=== PATIENT | female | born 1950 | race Hispanic/Latino ===

== ENCOUNTER → 2017-11-19 | Outpatient (CLI) | payer MEDICARE, BC ==
[~2017-11-19] MED LIST: ASPIR 8181 MG PO; CEFTIN500 MG PO; CRESTOR10 MG PO; DITROPAN XL5 MG PO; LISINOPRIL10 MG PO; NEXIUM40 MG PO; NORCO 10MG-325MG1 EA PO; PROBIOTIC & AC1 EACH PO; TYLENOL WITH C1 EACH PO; URIBEL CAPSULE1 EACH PO; Z.0.ESTRADIOL0.5 MG PO; Z.0.HYDROCHLOROTHIA2 PO; Z.0.LIPITOR10 MG PO
== END ==
LOC: CARD 08:33
PROVIDERS: ATTEND Family Medicine
DX: R42 Dizziness and giddiness (principal)
CPT/HCPCS: 93880

== ENCOUNTER 2018-02-16 02:28 | Emergency (ER) | payer MEDICARE, BC ==
[~2018-02-16] VITALS: Ht 154.9 cm; Wt 76.2 kg
[~2018-02-16 02:28] MED LIST changes: -ASPIR 8181 MG PO; -CRESTOR10 MG PO; -LISINOPRIL10 MG PO; -NEXIUM40 MG PO; -PROBIOTIC & AC1 EACH PO
--- OUTSIDE RECORDS SUMMARY | 2018-02-16 02:31 | XMS REPORT | Summary of Care ---
Author Author ION ROLLE M.D. Organization Unknown Address [facility] Phone Unavailable Care Team Providers Care Dye Reel Operator Name Role Phone ION ROLLE M.D. Unavailable Unavailable Unavailable Unavailable Functional Status Name Dates Details Functional status health issues are not documented Status: Name Dates Details Cognitive status health issues are not documented Status: Problems Name Dates Details Irritant contact dermatitis (692.9, L24.9) Status: Active Chronic GERD (530.81, K21.9) Status: Active TMJ (temporomandibular joint disorder) (524.60, M26.609) Status: Active Medications Name Dates Details HydroCHLOROthiazide 25 MG Oral Tablet Active Estradiol 0.5 MG Oral Tablet * Refills: 0 Active Lipitor TABS * Refills: 0 Active Allergies and Adverse Reactions Name Dates Details No Known Drug Allergies (Allergy) Status: Active Past Medical History Name Dates Details History of Absence of both cervix and uterus, acquired (V88.01, Z90.710) Status: Resolved 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 Has some GERD. Will need to begin Nexium daily and dietary modifications. 2. For the TMJ need to get ecommerce project manager. Fu as needed. Instructions Name Dates Details Instructions not documented Encounters Appointment; ANANYA NICOLE M.D. Encounter Diagnosis: Problem not documented On: 10-Mar-2016 13:00 Appointment; ION ROLLE M.D. Encounter Diagnosis: Problem not documented On: 28-Jan-2018 9:45
--- OUTSIDE RECORDS SUMMARY | 2018-02-16 02:31 | XMS REPORT ---
Author [facility] Address Unknown Phone Unavailable Care Team Providers Care Human Relations Manager Name Role Phone ANALI JOVEL Unavailable Unavailable Problems This patient has no known problems. Allergies, Adverse Reactions, Alerts This patient has no known allergies or adverse reactions. Medications This patient has no known medications. Results Test Description Test Time Test Comments Text Results Atomic Results Result Comments ABDOMEN-1VIEW (KUB) [place] [address] Patient Name: LANE CARRILLO MR #: [id number] : 1950 Age/Sex: 67/F Req #: [id number] Adm Physician: Ordered by: ANALI JOVEL MD Report #: [id number] Location: US Room/Bed: Procedure: [id number] DX/ABDOMEN-1VIEW (KUB) Exam Date: 09/03/17 Exam Time: 1515 REPORT STATUS: Signed PROCEDURE: ABDOMEN -1VIEW (KUB) TECHNIQUE: Supine AP abdomen totaling 2 radiographs INDICATION: Renal stones COMPARISON: [facility], CT, CT ABDOMEN/PELVIS WO, 05/01/2017, 8:45. FINDINGS: See conclusion. CONCLUSION: 1. Numerous punctate stones bilaterally. The largest on the left measures 0.4 cm and on the right 0.3 cm. These are much better seen on the CT from April 2017, where there were greater than 10 stones on the right and greater than 10 stones on the left. 2. No calcifications overlying the ureters or urinary bladder. 3. Normal bowel gas pattern. No ascites. 4. Intact skeleton. Dictated by: Khris Negron M.D. on 2016 at 15:34 Electronically approved by: Khris Negron M.D. on at 15:34 Dictated By: KHRIS NEGRON MD 1534 Transcribed By: LATRELL on 09/03/17 1534 COPY TO: ANALI JOVEL MD US RENAL RETROPERITONEAL COMP [place] [address] Patient Name: LANE CARRILLO MR #: [id number] : 1950 Age/Sex: 67/F Req #: [id number] Adm Physician: Ordered by: ANALI JOVEL MD Report #: [id number] Location: Room/Bed: Procedure: [id number] US/US RENAL RETROPERITONEAL COMP Exam Date: Exam Time: REPORT STATUS: Signed PROCEDURE: US RETROPERITONEAL ( KIDNEY ). COMPARISON: [facility], CT, CT ABDOMEN/PELVIS WO, 05/01/2017, 8:45. INDICATIONS: Cyst Of Kidney TECHNIQUE: Henriquez scale and color Doppler ultrasound kidneys FINDINGS: Right: 12 x 5.5 x 5.7 cm. Cortical thickness 1.6 cm. Left: 12.1 x 6.2 x 6 cm. Cortical thickness 2.1 cm. Both kidneys demonstrate normal parenchymal echogenicity. Numerous punctate stone seen on CT from April 2017 are not conspicuous, likely secondary to their size. Simple cysts : Left mid kidney 4.4 x 3.6 x 3.7 cm anechoic, avascular, noncalcified. CONCLUSION: Simple 4.4 cm left renal cyst. Punctate nonobstructive bilateral nephrolithiasis is better seen on CT from April 2017. Dictated by: Khris Negron M.D. on 09/03/2017 at 15:25 Electronically approved by: Khris Negron M.D. on 09/03/2017 at 15:25 Dictated By: KHRIS NEGRON MD 1525 Transcribed By: LATRELL on 09/03/17 1525 COPY TO: ANALI JOVEL MD
[2018-02-16] MEDS ORDERED: KETOROLAC TROMETHAMINE 30 MG/ML VIAL IV STA (02:44)
[2018-02-16 02:49] LABS: BASOPHILS % 0.2 % (0.0-1.0); EOSINOPHILS # (AUTO) 0.1 (0.0-0.4); EOSINOPHILS % 0.6 % (0.0-6.0); HEMATOCRIT 44.4 % (34.2-44.1); HEMOGLOBIN 14.6 g/dL (12.0-16.0); LYMPHOCYTES # (AUTO) 2.5 (1.0-3.2); LYMPHOCYTES % 16.9 % (18.0-39.1); MEAN CORPUSCULAR HGB CONC 32.9 g/dL (31-35); MEAN CORPUSCULAR VOLUME 88.1 fL (81-99); MONOCYTES # (AUTO) 0.7 (0.2-0.8); NEUTROPHILS # (AUTO) 11.2 (2.1-6.9); PLATELET COUNT 184 x10e3/uL (140-360); RED BLOOD COUNT 5.04 x10e6/uL (3.6-5.1); RED CELL DISTRIBUTION WIDTH 13.3 % (11.7-14.4)
[2018-02-16] MEDS ORDERED: SODIUM CHLORIDE 0.9% 1000ML 1,000 ML IV ONE (03:00)
[2018-02-16 03:07] LABS: ALANINE AMINOTRANSFERASE 56 IU/L (0-55); ALBUMIN 4.2 g/dL (3.5-5.0); ALBUMIN/GLOBULIN RATIO 1.1 (0.8-2.0); ALKALINE PHOSPHATASE 69 IU/L (40-150); ANION GAP 13.3 mmol/L (8-16); BLOOD UREA NITROGEN 19 mg/dL (7-26); BUN/CREATININE RATIO 25 (6-25); CARBON DIOXIDE 27 mmol/L (22-29); CHLORIDE 96 mmol/L (98-107); CREATININE, SERUM 0.76 mg/dL (0.57-1.11); EST GLOMERULAR FILTRATION RATE > 60 ML/MIN (60-); GLUCOSE 155 mg/dL (74-118); POTASSIUM 3.3 mmol/L (3.5-5.1); SODIUM 133 mmol/L (136-145)
[2018-02-16 05:01] LABS: CLARITY,URINE CLEAR (CLEAR); COLOR,URINE YELLOW (YELLOW); KETONES,URINE NEGATIVE (NEGATIVE); LEUKOCYTE ESTERASE ,URINE NEGATIVE (NEGATIVE); NITRITE,URINE NEGATIVE (NEGATIVE); PROTEIN,URINE DIPSTICK TRACE (NEGATIVE)
[2018-02-16 05:02] LABS: BILIRUBIN,URINE 1+ (NEGATIVE); URINE UROBILINOGEN 0.2 mg/dL (0.2 - 1)
[2018-02-16 05:11] LABS: BACTERIA,URINE FEW /HPF; EPITHELIAL CELLS,URINE RARE /LPF
[2018-02-16 05:12] LABS: MUCUS,URINE MANY (RARE)
[2018-02-16] MEDS ORDERED: CEFTRIAXONE SOD 1 GM VIAL IV ONE (05:30)
--- NOTE | 2018-02-16 05:48 | Diagnostic Imaging Report ---
EXAM: CT ABDOMEN AND PELVIS without IV CONTRAST INDICATION: Lower abdominal pain, started on left COMPARISON: None TECHNIQUE: The abdomen and pelvis were scanned using a multidetector helical scanner. Coronal and sagittal reformations were obtained. Renal stone protocol performed. IV Contrast: None Oral Contrast: None CTDIvol has been reviewed. It is below the limits set by the Radiation Protocol Committee (RPC). FINDINGS: LOWER THORAX: No consolidations LIVER: Hepatic steatosis. BILIARY: Cholecystectomy without ductal dilation. SPLEEN: No masses PANCREAS: No masses ADRENALS: No nodules RIGHT KIDNEY: Numerous subcentimeter stones throughout the right kidney. No hydronephrosis. No ureteral stones. LEFT KIDNEY: Numerous subcentimeter stones throughout the left kidney. No hydronephrosis. No ureteral stones. Simple cyst measuring 4.3 cm rising from the anterior aspect of the left kidney inferior pole. GI TRACT: Sigmoid colon diverticulosis with focal wall thickening and adjacent inflammation. Normal appendix. VESSELS: Minimal atherosclerotic changes of the abdominal aorta without aneurysm. PERITONEUM/RETROPERITONEUM: No free air or fluid LYMPH NODES: No lymphadenopathy REPRODUCTIVE ORGANS: Uterus and ovaries are not visualized. BLADDER: Normal SOFT TISSUES: Normal BONES: No suspicious bone lesions. IMPRESSION: Acute sigmoid colon diverticulitis. No abscess formation or free peritoneal air. Signed by: Dr. Lakesha Holguin M.D. on 02/16/2018 5:45 AM
== END 2018-02-16 06:47 | disposition home or self-care (01) ==
LOC: ER 02:28
DX: R10.9 Unspecified abdominal pain (principal); R11.2 Nausea with vomiting, unspecified; K57.32 Diverticulitis of large intestine without perforation or abscess without bleeding; I10 Essential (primary) hypertension; E78.5 Hyperlipidemia, unspecified
CPT/HCPCS: 74176; 99284; J0696; J1885; J7030

== ENCOUNTER → 2018-03-01 | Day surgery (SDC) | payer MEDICARE, BC ==
--- NOTE | 2018-02-28 15:01 | Diagnostic Imaging Report ---
PROCEDURE: Frontal and lateral views of the chest. COMPARISON: Patients [facility], , CHEST 2 VIEWS, 09/21/2012, 21:36. INDICATIONS: PREOPERATIVE CHEST XRAY FOR KIDNEY STONE SURGERY FINDINGS: Lines/tubes: None. Lungs: The lungs are well inflated and clear. There is no evidence of pneumonia or pulmonary edema. Pleura: There is no pleural effusion or pneumothorax. Heart and mediastinum: The heart and the mediastinum are normal. Bones: No acute bony abnormality. IMPRESSION: 1. No acute cardiopulmonary abnormalities. Estevan Vicente M.D. Dictated by: Estevan Vicente M.D. on 02/28/2018 at 15:04 Electronically approved by: Estevan Vicente M.D. on 02/28/2018 at 15:04
[~2018-03-01] MED LIST changes: +ASPIR 8181 MG PO; +BELLADONNA/OPIUM 30 MG SUPP RC ONE; +CEFTRIAXONE SOD 1 GM VIAL ONE; +CRESTOR10 MG PO; +DEXAMETHASONE SOD PHOS INJ 4 MG/ML VIAL ONE; +FENTANYL CITRATE/PF 100MCG/2 ML INJ ONE; +IOPAMIDOL 610MG/1ML 300 MG/ML VIAL IV ONE; +LIDOCAINE HCL 2% LOCAL INJ 5 ML SDV VIAL INJ ONE; +LISINOPRIL10 MG PO; +MIDAZOLAM HCL 2 MG/2 ML VIAL ONE; +NEXIUM40 MG PEG; +ONDANSETRON HCL INJ 2 MG/ML VIAL ONE; +PROPOFOL IV EMULSION 10 MG/ML 20 ML VIAL ONE; +SEVOFLURANE INHAL SOLN 250 ML PEN BTL ONE
[2018-03-01 08:47] LABS: BASOPHILS % 0.4 % (0.0-1.0); EOSINOPHILS # (AUTO) 0.2 (0.0-0.4); EOSINOPHILS % 2.3 % (0.0-6.0); HEMATOCRIT 40.6 % (34.2-44.1); HEMOGLOBIN 13.6 g/dL (12.0-16.0); LYMPHOCYTES # (AUTO) 2.3 (1.0-3.2); LYMPHOCYTES % 31.4 % (18.0-39.1); MEAN CORPUSCULAR HEMOGLOBIN 29.3 pg (28-32); MEAN CORPUSCULAR HGB CONC 33.5 g/dL (31-35); MEAN CORPUSCULAR VOLUME 87.5 fL (81-99); MONOCYTES # (AUTO) 0.6 (0.2-0.8); MONOCYTES % 7.7 % (4.4-11.3); NEUTROPHILS # (AUTO) 4.3 (2.1-6.9); NEUTROPHILS % 57.9 % (38.7-80.0); PLATELET COUNT 170 x10e3/uL (140-360); RED BLOOD COUNT 4.64 x10e6/uL (3.6-5.1); RED CELL DISTRIBUTION WIDTH 13.7 % (11.7-14.4)
--- NOTE | 2018-03-01 09:00 | Diagnostic Imaging Report ---
PROCEDURE:X-RAY ABDOMEN - KUB COMPARISON:CT abdomen and pelvis without contrast 02/16/2018. INDICATIONS:KIDNEY STONES, PREOP FINDINGS: Multiple scattered bilateral renal calculi (at least 3 on each side) measuring up to 5 mm on the left and 4 mm on the right. No suspicious calcifications project over the ureteral courses or or urinary bladder. Bowel gas pattern is nonobstructive. No mass effect or organomegaly. Cholecystectomy clips. Regional skeletal structures are intact. CONCLUSION: Scattered small bilateral renal calculi, seen to better drainage on comparison CT 02/16/2018. Dictated by: Turner Villanueva M.D. on 03/01/2018 at 9:04 Electronically approved by: Turner Villanueva M.D. on 03/01/2018 at 9:04
[2018-03-01 09:06] LABS: ANION GAP 12.8 mmol/L (8-16); BLOOD UREA NITROGEN 20 mg/dL (7-26); BUN/CREATININE RATIO 31 (6-25); CALCIUM 9.3 mg/dL (8.4-10.2); CARBON DIOXIDE 26 mmol/L (22-29); CHLORIDE 106 mmol/L (98-107); CREATININE, SERUM 0.64 mg/dL (0.57-1.11); EST GLOMERULAR FILTRATION RATE > 60 ML/MIN (60-); GLUCOSE 110 mg/dL (74-118); POTASSIUM 3.8 mmol/L (3.5-5.1); SODIUM 141 mmol/L (136-145)
--- OUTSIDE RECORDS SUMMARY | 2018-03-01 09:55 | XMS REPORT | Summary of Care ---
Author Author ION ROLLE M.D. Organization Unknown Address [facility] Phone Unavailable Care Team Providers Care Supervisor Dry Cleaning Name Role Phone ION ROLLE M.D. Unavailable [...] Details HydroCHLOROthiazide 25 MG Oral Tablet Active Lipitor TABS * Refills: 0 Active Lisinopril TABS * Refills: 0 Active Aspirin 81 MG TABS * Refills: 0 Active Allergies and [...] smoked Vital Signs Date Test Result Details [id number] BP Systolic 138 mm[Hg] Status: BP Diastolic 78 mm[Hg] Status: Height 61 in Status: Weight 168.125 lb Status: Body Mass Index Calculated 31.77 kg/m2 Status: Body Surface Area Calculated 1.75 m2 Status: Heart Rate 67 /min Status: Results Date Description Value Details Results not documented Plan of Care Name Dates Details Planned Observations Planned Goals not documented Interventions Provided Plan* 1. Has some GERD. Will need to begin Nexium daily and dietary modifications. 2. For the TMJ need to get pool lifeguard. Fu as needed. Instructions Name Dates Details Instructions not documented Encounters Appointment; ANANYA NICOLE M.D. Encounter Diagnosis: Problem not documented On: 10-Mar-2016 13:00 Appointment; ION ROLLE M.D. Encounter Diagnosis: Problem not documented On: 28-Jan-2018 9:45
--- OUTSIDE RECORDS SUMMARY | 2018-03-01 09:55 | XMS REPORT | Continuity of Care Document ---
Author Author [facility] Organization [facility] Address [address] [place] [address] Phone Unavailable Care Team Providers Care Accounting System Expert Name Role Phone ELVIA WEINER JR., M.D. PCP Insurance Providers Guarantor Norma Carrillo Address [address] [place] [address] Email [email or web address] [facility] Policy Number [id number] Subscriber's Name Norma Carrillo Relationship 18 Self / Same As Patient Group Number [id number] Group Name [facility] Effective Date 17 Payer Medicare A & B Policy Number [id number] Subscriber's Name Norma Carrillo Relationship 18 Self / Same As Patient Effective Date 17 Advance Directives Directive Response Recorded Date/Time Does the patient have an advance directive? No 09/10/14 5:47pm If yes, is advance directive on file with [facility]? No 09/10/14 5:47pm If not on file with [facility] will patient provide a copy? No 09/10/14 5:47pm Do you have a Directive to Physician? No 02/16/18 4:09am Do you have a Medical Power of Termite Technician? No 02/16/18 4:09am Do you have an out of hospital Do Not Resuscitate Order? No 02/16/18 4:09am Do you have any special needs we should be aware of? No 02/16/18 4:09am Do you have a support person here with you today? Yes 02/16/18 4:09am Did patient receive Notice of Privacy Practices? Yes 02/16/18 4:09am Did patient receive patient rights and responsibilities? Yes 02/16/18 4:09am Problems Medical Problem Onset Date Status Ureterolithiasis 09/10/2014 Acute Ureteropelvic junction obstruction 09/10/2014 Acute Medications Current Home Medications Medication Dose Units Route Directions Days Qty Instructions Start Date Acetaminophen With Codeine (Tylenol With Codeine #3 Tablet) 1 Each Tablet 300 Mg Oral Every 4 Hours as needed for Pain 1TABLET BY MOUTH EVERY 4- 6HOURS NEEDED FOR PAIN Atorvastatin Calcium (Lipitor) 10 Mg Tablet 10 Mg Oral Daily Cefuroxime Axetil (Ceftin) 500 Mg Tablet 500 Mg Oral Twice A Day 14 Estradiol 0.5 Mg Tablet 0.5 Mg Oral Daily Hydrochlorothiazide 25 Mg Tablet 25 Mg Oral Daily Oxybutynin Chloride (Ditropan Xl) 5 Mg Tab.er.24 5 Mg Oral Twice A Day 30 Tab Past Home Medications Medication Directions Ordered Status Acetaminophen/Hydrocodone Bitart ([place] 10MG-325MG*) 1 Ea Tab, 0.5-1 Tab Oral Every 6 Hours as needed Discontinued Cefuroxime Axetil (Ceftin) 500 Mg Tablet, 500 Mg Oral Twice A Day Discontinued Mth/Me Blue/Sod Phos/Phen/Hyos (Uribel Capsule) 1 Each Capsule, 1 Tab Oral 3- 4 Times Daily as needed Discontinued Social History Social History Problem Response Recorded Date/Time Onset Date Status Hx Psychiatric Problems No 09/10/2014 5:47pm Not Applicable Not Applicable Hx Eating Disorder No 09/10/2014 5:47pm Not Applicable Not Applicable Hx Substance Use Disorder No 09/10/2014 5:47pm Not Applicable Not Applicable Hx Depression No 09/10/2014 5:47pm Not Applicable Not Applicable Hx Alcohol Use Y - occasional 09/10/2014 5:47pm Not Applicable Not Applicable Hx Substance Use Treatment No 09/10/2014 5:47pm Not Applicable Not Applicable Hx Physical Abuse No 09/10/2014 5:47pm Not Applicable Not Applicable Smoking Status Start Date Stop Date Never Smoker Hospital Discharge Instructions No hospital discharge instruction information available. Plan of Care Discharge Date 02/16/18 6:47am Disposition HOME, SELF-CARE Condition at Discharge Stable Instructions/Education Provided Abdominal Pain - Adult Diverticulitis Diverticulosis Prescriptions See Medication Section Referrals ELVIA WEINER JR., M.D. Address: [address] [place] [address] [place] [address] [id number] Additional Instructions/Education REST; DRINK PLENTY OF WATER; TAKE MEDICATIONS PRESCRIBED; FOLLOW UP WITH YOUR PCP; Functional Status No functional status information available. Allergies, Adverse Reactions, Alerts No known allergies. Immunizations No immunization information available. Vital Signs Acute Vital Signs Vital Response Date/Time Pulse Pulse Rate (adult) 62 bpm (60 - 90) 05/01/2017 10:59am Respiratory Rate 17 bpm (12 - 24) 05/01/2017 10:59am Blood Pressure 111/48 mm Hg 05/01/2017 10:59am Height 5 ft 1 in 02/16/2018 2:43am Weight 168 lb 02/16/2018 2:43am Body Mass Index 31.7 kg/m^2 02/16/2018 2:43am Results Laboratory Results Test Name Result Units Flags Reference Collection Date/Time Result Date/ Time Comments White Blood Count 14.52 x10e3/uL H 4.8-10.8 02/16/2018 2:41am 2017 3:24am Red Blood Count 5.04 x10e6/uL 3.6-5.1 02/16/2018 2:41am 02/16/2018 3: 24am Hemoglobin 14.6 g/dL 12.0-16.0 02/16/2018 2:41am 02/16/2018 3:24am Hematocrit 44.4 % H 34.2-44.1 02/16/2018 2:41am 02/16/2018 3:24am Mean Corpuscular Volume 88.1 fL 81-99 02/16/2018 2:41am 02/16/2018 3: 24am Mean Corpuscular Hemoglobin 29.0 pg 28-32 02/16/2018 2:41am 02/16/2018 3:24am Mean Corpuscular Hemoglobin Concent 32.9 g/dL 31-35 02/16/2018 2:02/16/2018 3:24am Red Cell Distribution Width 13.3 % 11.7-14.4 02/16/2018 2:2017 3:24am Platelet Count 184 x10e3/uL 140-360 02/16/2018 2:02/16/2018 3: 24am Neutrophils (%) (Auto) 77.0 % 38.7-80.0 02/16/2018 2:02/16/2018 3: 24am Lymphocytes (%) (Auto) 16.9 % L 18.0-39.1 02/16/2018 2:02/16/2018 3 :24am Monocytes (%) (Auto) 5.0 % 4.4-11.3 02/16/2018 2:02/16/2018 3: 24am Eosinophils (%) (Auto) 0.6 % 0.0-6.0 02/16/2018 2:02/16/2018 3: 24am Basophils (%) (Auto) 0.2 % 0.0-1.0 02/16/2018 2:02/16/2018 3:24am IM GRANULOCYTES % 0.3 % 0.0-1.0 02/16/2018 2:02/16/2018 3:24am Neutrophils # (Auto) 11.2 H 2.1-6.9 02/16/2018 2:02/16/2018 3: 24am Lymphocytes # (Auto) 2.5 1.0-3.2 02/16/2018 2:02/16/2018 3:24am Monocytes # (Auto) 0.7 0.2-0.8 02/16/2018 2:02/16/2018 3:24am Eosinophils # (Auto) 0.1 0.0-0.4 02/16/2018 2:02/16/2018 3:24am Basophils # (Auto) 0.0 0.0-0.1 02/16/2018 2:02/16/2018 3:24am Absolute Immature Granulocyte (auto 0.05 x10e3/uL 0-0.1 02/16/2018 2: 02/16/2018 3:24am Urine Color YELLOW YELLOW 02/16/2018 4:50am 02/16/2018 5:02am Urine Clarity CLEAR CLEAR 02/16/2018 4:50am 02/16/2018 5:02am Urine Specific Beecher 1.030 H 1.010-1.025 02/16/2018 4:50am 2017 5:02am Urine pH 6 5 - 7 02/16/2018 4:50am 02/16/2018 5:02am Urine Leukocyte Esterase NEGATIVE NEGATIVE 02/16/2018 4:50am 2017 5:02am Urine Nitrite NEGATIVE NEGATIVE 02/16/2018 4:50am 02/16/2018 5:02am Urine Protein TRACE H NEGATIVE 02/16/2018 4:50am 02/16/2018 5:02am Urine Glucose (UA) NEGATIVE NEGATIVE 02/16/2018 4:50am 02/16/2018 5: 02am Urine Ketones NEGATIVE NEGATIVE 02/16/2018 4:50am 02/16/2018 5:02am Urine Urobilinogen 0.2 mg/dL 0.2 - 1 02/16/2018 4:50am 02/16/2018 5: 02am Urine Bilirubin 1+ H NEGATIVE 02/16/2018 4:50am 02/16/2018 5:02am Urine Blood NEGATIVE NEGATIVE 02/16/2018 4:50am 02/16/2018 5:02am Urine WBC 11-20 /HPF H 0-5 02/16/2018 4:50am 02/16/2018 5:13am Urine RBC 6-10 /HPF H 0-5 02/16/2018 4:50am 02/16/2018 5:13am Urine Bacteria FEW /HPF NONE 02/16/2018 4:50am 02/16/2018 5:13am Urine Epithelial Cells RARE /LPF NONE 02/16/2018 4:50am 02/16/2018 5: 13am Urine Mucus MANY H RARE 02/16/2018 4:50am 02/16/2018 5:13am Sodium Level 133 mmol/L L 136-145 02/16/2018 2:41am 02/16/2018 3:22am Potassium Level 3.3 mmol/L L 3.5-5.1 02/16/2018 2:41am 02/16/2018 3: 22am Chloride Level 96 mmol/L L 98-107 02/16/2018 2:4102/16/2018 3:22am Carbon Dioxide Level 27 mmol/L 22-29 02/16/2018 2:4102/16/2018 3: 22am Anion Gap 13.3 mmol/L 8-16 02/16/2018 2:4102/16/2018 3:22am Blood Urea Nitrogen 19 mg/dL 7-02/16/2018 2:4102/16/2018 3:22am Creatinine 0.76 mg/dL 0.57-1.11 02/16/2018 2:4102/16/2018 3:22am BUN/Creatinine Ratio 25 6-25 02/16/2018 2:4102/16/2018 3:22am Estimat Glomerular Filtration Rate > 60 ML/MIN 60- 02/16/2018 2:41 3:22am Ranges were taken from the National Kidney Disease Education Program and the National Kidney Foundation literature. Reference ranges: 60 or greater: Normal 16-59 (for 3 consecutive months): Chronic kidney disease 15 or less: Kidney failure Glucose Level 155 mg/dL H 74-118 02/16/2018 2:4102/16/2018 3:22am Calcium Level 10.0 mg/dL 8.4-10.2 02/16/2018 2:4102/16/2018 3:22am Total Bilirubin 1.0 mg/dL 0.2-1.2 02/16/2018 2:4102/16/2018 3:22am Aspartate Amino Transf (AST/SGOT) 23 IU/L 5-34 02/16/2018 2:412017 3:22am Alanine Aminotransferase (ALT/SGPT) 56 IU/L H 0-55 02/16/2018 2:41 3:22am Total Protein 7.9 g/dL 6.5-8.1 02/16/2018 2:4102/16/2018 3:22am Albumin 4.2 g/dL 3.5-5.0 02/16/2018 2:4102/16/2018 3:22am Globulin 3.7 g/dL H 2.3-3.5 02/16/2018 2:4102/16/2018 3:22am Albumin/Globulin Ratio 1.1 0.8-2.0 02/16/2018 2:41am 02/16/2018 3: 22am Alkaline Phosphatase 69 IU/L 40-150 02/16/2018 2:41am 02/16/2018 3: 22am Procedures Procedure Status Date Provider(s) CT of abdomen and pelvis without contrast Active 05/01/17 TRUDI KINGSTON MD Ultrasound, renal Active 09/03/[address] of abdomen and pelvis without contrast Active 02/16/18 ION BHATIA MD Encounters Encounter Location Arrival/Admit Date Discharge/Depart Date Attending Provider Registered Emergency Room [facility] 02/16/18 2:28am ION BHATIA MD Registered Clinic [facility] 11/19/17 8:33am GUERRERO MONTES DE OCA M.D. Registered Clinic [facility] 09/03/17 2:29pm ANALI JOVEL MD Departed Emergency Room [facility] 05/01/17 8:01am 11:10am TRUDI KINGSTON MD
--- NOTE | 2018-04-09 14:41 | Operative Report ---
DATE OF PROCEDURE: March 01, 2018 PREOPERATIVE DIAGNOSES: 1. Bilateral nephrolithiasis. 2. Urinary tract infections. 3. Stress-type urinary incontinence. POSTOPERATIVE DIAGNOSES: 1. Bilateral nephrolithiasis. 2. Urinary tract infections. 3. Stress-type urinary incontinence. OPERATIONS PERFORMED: 1. Staged right-sided extracorporeal shock wave lithotripsy (separate procedure performed for the right nephrolithiasis). 2. Cystourethroscopy with bilateral ureteral catheterization and retrograde ureteropyelography (separate procedure performed for the urinary tract infections). 3. Interpretation of retrograde ureteropyelography. 4. Pelvic examination under anesthesia. ANESTHESIA: General. COMPLICATIONS: None. CLINICAL SUMMARY: Norma Reid is a 67-year-old woman with recurrent stones. She has 3 stones on each side. They were visualized on preoperative imaging. She is brought for the management of the stones. This is the first stage of multistage, multistep process of managing the patient's urolithiasis. She is aware of the risks of bleeding, infection, injury to adjacent structures, need for additional procedures, and elected to proceed. OPERATIVE PROCEDURE IN DETAIL: Informed consent was verified. Norma Reid was properly identified, taken to the operating room, and placed on the lithotripsy table in supine position. Anesthesia was uneventfully begun. The patient's right nephrolithiasis was localized with biplanar fluoroscopy. A total of 3000 shocks were delivered. We only have enough shocks to treat 2 out of the 3 stones. One stone remained untreated on the right hand side. The patient was then carefully and gently repositioned in dorsal lithotomy position with all pressure points well padded. Her genitalia were prepared and draped in usual sterile fashion. The 22.5-Marshallese cystoscope sheath with the obturator in place was atraumatically inserted in patient's urethra and bladder was drained. Panendoscopy of the urinary bladder revealed fine sand throughout the trigone and the base of the bladder. There were grade 1 to 2 trabeculations present. Normally positioned and configured ureteral orifices were identified. An 8-Marshallese catheter was used to cannulate each ureter, and retrograde ureteral pyelograms were performed. Interpretation of retrograde ureteropyelography: Contrast was instilled in retrograde fashion bilaterally. There were stones present in calices as we expected based on the patient's preoperative imaging. There were filling defects noted on the right hand side where we treated 2 separate stone clusters. Unobstructed drainage was observed bilaterally fluoroscopically. There was no evidence of hydronephrosis and there was no evidence of obstruction. Patient's bladder was then drained. The cystoscope was withdrawn. Pelvic examination under anesthesia revealed no pelvic masses. There was atrophic (senile) vaginitis that was present. No abnormal palpable pelvic masses could be appreciated, and the patient was uneventfully reversed from anesthesia and taken to recovery room in stable condition. There were no complications to the procedure. She tolerated the procedure well. Explicit postoperative instructions were given, and will plan on returning the patient to the operating room for a left ESWL. Job#: [id number]
== END | disposition home or self-care (01) ==
LOC: OR 09:52
PROVIDERS: ATTEND Urology
DX: N20.0 Calculus of kidney (principal); N39.0 Urinary tract infection, site not specified; N39.3 Stress incontinence (female) (male); N32.89 Other specified disorders of bladder; N95.2 Postmenopausal atrophic vaginitis; I10 Essential (primary) hypertension; I83.90 Asymptomatic varicose veins of unspecified lower extremity; K21.9 Gastro-esophageal reflux disease without esophagitis; Z01.810 Encounter for preprocedural cardiovascular examination; Z01.818 Encounter for other preprocedural examination; Z79.82 Long term (current) use of aspirin
CPT/HCPCS: 36415; 50590; 71046; 74018; 80048; 85025; 93005; C1758; J0696; J1100; J2001; J2250; J2405; Q9967

== ENCOUNTER → 2018-05-22 | Day surgery (SDC) | payer MEDICARE, BC ==
[~2018-05-22] MED LIST changes: -BELLADONNA/OPIUM 30 MG SUPP RC ONE; +DESFLURANE 240 ML BTL INH ONE; +EPHEDRINE SULFATE INJ 50 MG/10 ML SYR ONE; +IOPAMIDOL 300MG/ML 50ML INFUS..BTL IV ONE; -IOPAMIDOL 610MG/1ML 300 MG/ML VIAL IV ONE; -NEXIUM40 MG PEG; +NEXIUM40 MG PO; +PROBIOTIC & AC1 EACH PO; -SEVOFLURANE INHAL SOLN 250 ML PEN BTL ONE
--- NOTE | 2018-05-22 07:15 | Diagnostic Imaging Report ---
EXAM: ABDOMEN-1VIEW (KUB) DATE: 05/22/2018 5:42 AM INDICATION: Preoperative COMPARISON: 04/19/2018 FINDINGS: Cholecystectomy clips present. Bowel gas pattern is nonobstructive with no evidence of pneumoperitoneum. Moderate stool. No acute osseous findings. IMPRESSION: No acute findings. Signed by: Dr. Nico Huizar MD on 05/22/2018 7:12 AM
[2018-05-22 09:25] VITALS: BP 131/58
--- NOTE | 2018-06-27 03:02 | Operative Report ---
DATE OF PROCEDURE: May 22, 2018 PREOPERATIVE DIAGNOSES: 1. Left nephrolithiasis. 2. Renal colic. 3. Rectocele. 4. Urethral hypermobility. 5. Atrophic vaginitis. POSTOPERATIVE DIAGNOSES: 1. Left nephrolithiasis. 2. Renal colic. 3. Rectocele. 4. Urethral hypermobility. 5. Atrophic vaginitis. OPERATIONS PERFORMED: Note these were all staged procedures as part of a multistage, multistep process of managing the patient's urolithiasis. 1. Left-sided extracorporeal shock wave lithotripsy (separate procedure performed for the left nephrolithiasis). 2. Cystourethroscopy with bilateral ureteral catheterization and retrograde ureteropyelography (separate procedure performed for the renal colic). 3. Interpretation of retrograde ureteropyelography. 4. Pelvic examination under anesthesia. ANESTHESIA: General. COMPLICATIONS: None. CLINICAL SUMMARY: Norma Reid is a 68-year-old woman with recurrent urolithiasis. She has undergone prior ESWL. She is brought to the operating room to manage additional stones. She is aware of the risks of bleeding, infection, injury to adjacent structures, need for additional procedures, and elected to proceed. The patient has had some left-sided pains and is concerned she may have stones causing these pains. OPERATIVE PROCEDURE IN DETAIL: Informed consent was verified. Norma Reid was properly identified, taken to the operating room, and placed on the lithotripsy table in supine position. Anesthesia was uneventfully begun. Two separate stones on left hand side were localized with biplanar fluoroscopy. We split the 3000 shocks between the lower caliceal and the upper caliceal 5-mm stones. Once we delivered all our shocks, the patient was carefully and gently repositioned in dorsal lithotomy position with all pressure points well padded. Her genitalia were prepared and draped in usual sterile fashion. The 22.5-Irish cystoscope sheath with the obturator in place was atraumatically inserted into patient's urethra and the bladder was drained. Panendoscopy of the urinary bladder revealed no suspicious mucosal lesions, no tumors, no stones, and no diverticula. Some trabeculations were noted. A ureteral catheter was used to cannulate each ureter, and retrograde ureteral pyelograms were performed. Interpretation of retrograde ureteropyelography: Contrast was instilled in retrograde fashion bilaterally. On the right side, I really could not find the previously diagnosed kidney stones. The right side exhibited no hydronephrosis, no filling defects. Unobstructed drainage was observed. The left side exhibited some fullness, but this fullness drained very promptly down the ureter consistent with most likely an anatomical variant without a true obstruction. The patient's bladder was then drained. The cystoscope was withdrawn. Pelvic examination revealed a grade 2 to 3 rectocele with urethral hypermobility that was minimal and atrophic vaginitis. The patient was then uneventfully reversed from anesthesia and taken to the recovery room in stable condition. There were no complications to the procedure. She tolerated the procedure well. Plans will be to have the patient filter her urine as an outpatient, and then followup additional procedures may be warranted based on further imaging later. Job#: [id number]
== END | disposition home or self-care (01) ==
LOC: OR 05:05
PROVIDERS: ATTEND Urology
DX: N20.1 Calculus of ureter (principal); I10 Essential (primary) hypertension; E78.5 Hyperlipidemia, unspecified; N81.6 Rectocele; N36.41 Hypermobility of urethra; N95.2 Postmenopausal atrophic vaginitis
CPT/HCPCS: 50590; 74018; J0696; J1100; J2001; J2250; J2405; Q9967

== ENCOUNTER → 2018-06-10 | Outpatient (CLI) | payer MEDICARE, BC ==
[~2018-06-10] MED LIST changes: -CEFTRIAXONE SOD 1 GM VIAL ONE; -DESFLURANE 240 ML BTL INH ONE; -DEXAMETHASONE SOD PHOS INJ 4 MG/ML VIAL ONE; -EPHEDRINE SULFATE INJ 50 MG/10 ML SYR ONE; -FENTANYL CITRATE/PF 100MCG/2 ML INJ ONE; -IOPAMIDOL 300MG/ML 50ML INFUS..BTL IV ONE; -LIDOCAINE HCL 2% LOCAL INJ 5 ML SDV VIAL INJ ONE; -MIDAZOLAM HCL 2 MG/2 ML VIAL ONE; -ONDANSETRON HCL INJ 2 MG/ML VIAL ONE; -PROPOFOL IV EMULSION 10 MG/ML 20 ML VIAL ONE
--- NOTE | 2018-06-10 18:24 | Diagnostic Imaging Report ---
EXAM: Abdomen 2 Views INDICATION: Renal stones \S\[id number] \S\[id number] COMPARISON: KUB dated 05/22/2018 FINDINGS: Nonobstructive bowel gas pattern. No signs of pneumoperitoneum. Questionable 3 mm left renal inferior pole calculus. Otherwise, no evidence of calcification overlying renal shadows. Degenerative changes of lower lumbar spine. Right upper quadrant surgical clips, likely from cholecystectomy. IMPRESSION: 1. Questionable 3 mm left renal inferior pole calculus. Otherwise, unremarkable exam. Signed by: Dr. Carson Vasquez MD on 06/10/2018 6:21 PM
== END ==
LOC: RAD 16:35
PROVIDERS: ATTEND Urology
DX: N20.0 Calculus of kidney (principal)
CPT/HCPCS: 74018

== ENCOUNTER → 2019-01-29 | Outpatient (CLI) | payer MEDICARE, BC ==
--- NOTE | 2019-01-29 16:02 | Diagnostic Imaging Report ---
Exam: KUB - 2 views Clinical History: Renal calculus. Comparison: KUB 06/10/2018. Findings: There are multiple calcifications overlying the bilateral kidneys, measuring up to 3 mm in the left lower pole and 4 mm in the right upper pole. Bowel gas partially obscures visualization of the right kidney. No evidence of calcification overlying the expected course of the ureters. Nonobstructive bowel gas pattern. Status post cholecystectomy. No acute osseous abnormality. Impression: Multiple bilateral renal stones as above. Signed by: Dr. Concetta Knutson MD on 01/29/2019 3:58 PM
== END ==
LOC: RAD 14:28
PROVIDERS: ATTEND Urology
DX: N20.0 Calculus of kidney (principal)
CPT/HCPCS: 74018

== ENCOUNTER → 2019-02-10 | Outpatient (CLI) | payer MEDICARE, BC ==
--- NOTE | 2019-02-10 19:05 | Diagnostic Imaging Report ---
EXAM: CT Abdomen and Pelvis WITHOUT contrast INDICATION: Bilateral flank pain x2 days. ^CALCULUS OF KIDNEY COMPARISON: KUB 01/29/2019. 06/10/2018. A 13/06/2018. TECHNIQUE: Abdomen and pelvis were scanned utilizing a multidetector helical scanner from the lung base to the pubic symphysis without administration of IV contrast. Absence of intravenous contrast decreases sensitivity for detection of focal lesions and vascular pathology. Coronal and sagittal reformations were obtained. Routine protocol was performed. IV CONTRAST: None ORAL CONTRAST: Water COMPLICATIONS: None RADIATION DOSE: Total DLP: 527.3 mGy*cm Estimated effective dose: (DLP x 0.015 x size factor) mSv CTDIvol has been reviewed. It is below the limits set by the Radiation Protocol Committee (RPC). Dose modulation, iterative reconstruction, and/or weight based adjustment of the mA/kV was utilized to reduce the radiation dose to as low as reasonably achievable. FINDINGS: LINES and TUBES: None. LOWER THORAX: Unremarkable HEPATOBILIARY: No focal hepatic lesions. No biliary ductal dilation. GALLBLADDER: There are cholecystectomy clips. SPLEEN: No splenomegaly. PANCREAS: No focal masses or ductal dilatation. ADRENALS: No adrenal nodules KIDNEYS/URETERS: No hydronephrosis. 4.8 cm cyst in the anterior interpolar region left kidney. 13 nonobstructing right renal stones with the largest measuring 3 mm. 9 nonobstructing left renal stones with the largest stone measuring 3 mm. GI TRACT: No abnormal distention, wall thickening, or evidence of bowel obstruction. There are diverticula within the colon without evidence of diverticulitis. Appendix is normal. PELVIC ORGANS/BLADDER: Pelvic floor prolapse. LYMPH NODES: No lymphadenopathy. VESSELS: Unremarkable. PERITONEUM / RETROPERITONEUM: No free air or fluid. BONES: There are degenerative changes in the lumbar spine. Large posterior disc osteophyte at L4-5. SOFT TISSUES: Low transverse scar. IMPRESSION: 1. Numerous bilateral nonobstructing renal stones measuring up to 3 mm. 2. Pelvic floor prolapse. Signed by: Dr. Mesfin Campbell M.D. on 02/10/2019 7:01 PM
== END ==
LOC: CT 17:31
PROVIDERS: ATTEND Urology
DX: N20.0 Calculus of kidney (principal)
CPT/HCPCS: 74176

== ENCOUNTER → 2019-02-20 | Outpatient (CLI) | payer MEDICARE, BC ==
[~2019-02-20] MED LIST changes: +GADOBENATE DIMEGLUMINE 1 ML IV ONE
[2019-02-20 10:52] LABS: BLOOD UREA NITROGEN 13 mg/dL (7-26); BUN/CREATININE RATIO 17 (6-25); CREATININE, SERUM 0.77 mg/dL (0.57-1.11); EST GLOMERULAR FILTRATION RATE > 60 ML/MIN (60-)
--- NOTE | 2019-02-20 15:37 | Diagnostic Imaging Report ---
MRI of the left ankle with and without contrast. History: Swelling. Redness. Rupture. Prior surgery. Abscess. Technique: Multiplanar multisequence MRI of the left ankle with and without intravenous contrast. 15 cc IV gadolinium contrast material was administered. Comparison: None. Findings: Achilles tendon and plantar fascia: The Achilles tendon and plantar fascia are normal. Cartilage and bone: Negative for osteochondral lesion of the tibiotalar and subtalar joints. Negative for fracture, osteonecrosis, or stress related edema. Medial ankle: The deltoid ligament complex is intact. The medial flexor tendons are normal. There is a physiologic amount of fluid within the tendon sheath of FHL. Lateral ankle: The anterior talofibular, calcaneofibular, and posterior talofibular ligaments are intact. The syndesmotic ligaments are intact. Postsurgical changes with metallic artifact and scarring are seen to the peroneal tendons at the tip of the fibula. There is a mild amount of adjacent abnormal contrast enhancement which could be due to granulation tissue. No well-formed drainable fluid collection/abscess is seen. The peroneus brevis tendon is torn and retracted proximally. The peroneus longus tendon is intact. Anterior ankle: The anterior extensor tendons are normal. Other findings: Negative for joint effusion. Impression: Postsurgical changes with metallic artifact and scarring are seen to the peroneal tendons at the tip of the fibula. There is a mild amount of adjacent abnormal contrast enhancement which could be due to granulation tissue. No well-formed drainable fluid collection/abscess is seen. The peroneus brevis tendon is torn and retracted proximally. The peroneus longus tendon is intact. Signed by: Dr. Ty Cruz M.D. on 02/20/2019 3:33 PM
== END ==
LOC: MRI 10:07
PROVIDERS: ATTEND Podiatrist Foot Surgery
DX: M25.572 Pain in left ankle and joints of left foot (principal); M25.472 Effusion, left ankle
CPT/HCPCS: 36415; 82565; 84520

== ENCOUNTER → 2019-04-10 | Outpatient (CLI) | payer MEDICARE, BC ==
[~2019-04-10] MED LIST changes: -GADOBENATE DIMEGLUMINE 1 ML IV ONE
--- NOTE | 2019-04-10 16:15 | Diagnostic Imaging Report ---
Exam: KUB - 2 views Clinical History: Renal calculus Comparison: KUB of 01/29/2019 and 06/10/2018, CT abdomen pelvis of 02/10/2019 Findings: Nonobstructive bowel gas pattern. There are at least 3 approximately 3 mm right renal calculi and a 3 mm upper pole left renal calculus. Multiple other small renal calculi described on the recent abdomen and pelvis CT of 02/10/2019 are beyond the resolution of this radiograph. The osseous structures appear unremarkable. No free air. Impression: Bilateral renal calculi measuring up to 3 mm as above. Other renal calculi evident on CT of 02/10/2019 are beyond the resolution of this radiograph. Signed by: Catarino Whittaker MD on 04/10/2019 4:11 PM
== END ==
LOC: RAD 15:45
PROVIDERS: ATTEND Urology
DX: N20.0 Calculus of kidney (principal)
CPT/HCPCS: 74018

== ENCOUNTER → 2020-02-27 | Day surgery (SDC) | payer MEDICARE, BC, OTHER ==
[2020-02-24 12:09] LABS: BASOPHILS % 0.4 % (0.0-1.0); EOSINOPHILS # (AUTO) 0.2 (0.0-0.4); EOSINOPHILS % 2.4 % (0.0-6.0); HEMATOCRIT 43.5 % (34.2-44.1); HEMOGLOBIN 13.9 g/dL (12.0-16.0); LYMPHOCYTES # (AUTO) 2.5 (1.0-3.2); LYMPHOCYTES % 31.1 % (18.0-39.1); MEAN CORPUSCULAR HEMOGLOBIN 29.1 pg (28-32); MEAN CORPUSCULAR VOLUME 91.2 fL (81-99); MONOCYTES # (AUTO) 0.6 (0.2-0.8); MONOCYTES % 7.9 % (4.4-11.3); NEUTROPHILS # (AUTO) 4.7 (2.1-6.9); NEUTROPHILS % 58.1 % (38.7-80.0); PLATELET COUNT 155 x10e3/uL (140-360); RED BLOOD COUNT 4.77 x10e6/uL (3.6-5.1); RED CELL DISTRIBUTION WIDTH 13.2 % (11.7-14.4)
--- NOTE | 2020-02-24 12:24 | Diagnostic Imaging Report ---
EXAMINATION: CHEST 2 VIEWS INDICATION: Pre-operative COMPARISON: None FINDINGS: LINES/TUBES:None LUNGS:The lungs are well-inflated. No focal consolidation or pulmonary edema. PLEURA:No pleural effusion or pneumothorax. MEDIASTINUM:The cardiomediastinal silhouette appears normal in size and shape. BONES/SOFT TISSUES:No acute osseous injury. ABDOMEN:No free air under the diaphragm. Status post cholecystectomy. IMPRESSION: No focal pneumonia or pulmonary edema. Signed by: Catarino Whittaker MD on 02/24/2020 12:21 PM
--- NOTE | 2020-02-24 12:30 | Diagnostic Imaging Report ---
Exam: KUB - 2 views Indication: Renal calculus Comparison: KUB 10/22/2019, CT abdomen and pelvis of 02/10/2019 Findings: Unchanged appearance of bilateral renal calculi which measure up to 4 mm on the right and 3 mm on the left. No new radiographically apparent renal calculi. Nonobstructive bowel gas pattern. No free air. Status post cholecystectomy. No acute osseous injury. Impression: Unchanged bilateral renal calculi measuring up to 4 mm on the right and 3 mm on the left. Signed by: Catarino Whittaker MD on 02/24/2020 12:27 PM
[2020-02-24 12:39] LABS: ANION GAP 15.5 mmol/L (8-16); BLOOD UREA NITROGEN 16 mg/dL (7-26); BUN/CREATININE RATIO 24 (6-25); CALCIUM 9.6 mg/dL (8.4-10.2); CARBON DIOXIDE 23 mmol/L (22-29); CHLORIDE 106 mmol/L (98-107); CREATININE, SERUM 0.66 mg/dL (0.57-1.11); EST GLOMERULAR FILTRATION RATE > 60 ML/MIN (60-); GLUCOSE 93 mg/dL (74-118); POTASSIUM 4.5 mmol/L (3.5-5.1); SODIUM 140 mmol/L (136-145)
[~2020-02-27] MED LIST changes: +B&O 60MG R/S 60 MG SUPP PR ONE; +CEFTRIAXONE SOD 1 GM/NS 50 ML 50 ML IV ONE; +CLARITIN-D 241 EACH PO; +DEXAMETHASONE SOD PHOS INJ 4 MG/ML VIAL ONE; +EPHEDRINE SULFATE INJ 50 MG/ML VIAL ONE; +ETOMIDATE 2 MG/ML 10 ML INJ IV ONE; +GLYCOPYRROLATE INJ 0.2 MG/ML VIAL ONE; +IOPAMIDOL 300MG/ML 50ML INFUS..BTL IV ONE; +LIDOCAINE HCL 2% LOCAL INJ 5 ML SDV VIAL INJ ONE; +METFORMIN HCL500 MG PO; +ONDANSETRON HCL INJ 2MG/ML 2ML 2 MG/ML VIAL ONE; +SEVOFLURANE INHAL SOLN 250 ML PEN BTL ONE
[2020-02-27 09:05] VITALS: BP 131/73
--- NOTE | 2020-02-29 21:05 | Operative Report ---
DATE OF PROCEDURE: 02/27/2020 SURGEON: Akil Bai MD PREOPERATIVE DIAGNOSES: 1. Nephrolithiasis. 2. Urinary tract infections. POSTOPERATIVE DIAGNOSES: 1. Nephrolithiasis. 2. Urinary tract infections. 3. Grade 2 cystocele. 4. Grade 3 rectocele. 5. Urethral hypermobility. 6. Atrophic (senile) vaginitis. OPERATIONS PERFORMED: Note, these were all staged procedures as part of multi-staged and multi-step process in managing the patient's urolithiasis. 1. Left-sided extracorporeal shockwave lithotripsy (separate procedure performed for the left nephrolithiasis). 2. Cystourethroscopy with bilateral ureteral catheterization and retrograde ureteropyelography (separate procedure performed for the urinary tract infections). 3. Interpretation of retrograde ureteropyelography, no radiologist present. 4. Pelvic examination under anesthesia. ANESTHESIA: General. COMPLICATIONS: None. CLINICAL SUMMARY: Norma Reid is a 69-year-old woman with recurrent urolithiasis. She was brought for the above procedures. She is aware of the risks of bleeding, infection, injury to adjacent structures, and no need for additional procedures on contralateral side. She understood these risks and elected to proceed. OPERATIVE PROCEDURE IN DETAIL: Informed consent was verified. Norma Reid was properly identified, taken to the operating room and placed on the lithotripsy table in supine position. Anesthesia was uneventfully begun. The patient's left nephrolithiasis was localized with biplanar fluoroscopy. A total of 3000 shocks were delivered with excellent fragmentation noted. The patient was then uneventfully and carefully repositioned in dorsal lithotomy position with all pressure points were well padded. Her genitalia were prepared and draped in usual sterile fashion. The cystoscope sheath with obturator in place was atraumatically inserted. The patient's urethra and bladder were drained. Panendoscopy revealed no suspicious mucosal lesions, no tumors, no stones, and no diverticula. There was some inflammation on the trigone. The ureters exhibited a fairly patulous opening more notably on the right-hand side on the left hand side with repositioned normally. There was some mild trabeculations noted. An 8-Maltese catheter was used to cannulate each ureter and retrograde ureteral pyelograms were performed. Interpretation of retrograde ureteropyelography contrast was instilled in retrograde fashion bilaterally. There were filling defects in the left hand side, which corresponding to the location of performed lithotripsy, but there was no hydronephrosis and unobstructed drainage was observed fluoroscopically. The right hand side exhibited stone in two areas, but there was no hydronephrosis. Unobstructed drainage was observed fluoroscopically. The patient bladder was drained. Cystoscope was withdrawn. Pelvic examination revealed a grade 2 cystocele, grade 3 rectocele. There was urethral hypermobility and atrophic vaginitis. No abnormal palpable pelvic masses could be appreciated. There were no obvious mucosal lesions. The patient was then uneventfully reversed from anesthesia and taken to recovery in stable condition. No complications to the procedure. She tolerated the procedure well. Explicit postoperative instructions were given. Plans will be to return the patient to the operating room for a right ESWL. Akil MD Bhumika [place]/MODL /[id number] cc: Cordell Jimenez Jr, MD
== END | disposition home or self-care (01) ==
LOC: OR 05:28
PROVIDERS: ATTEND Urology
DX: N20.0 Calculus of kidney (principal); N39.0 Urinary tract infection, site not specified; N81.10 Cystocele, unspecified; N81.6 Rectocele; N36.41 Hypermobility of urethra; N95.2 Postmenopausal atrophic vaginitis; N32.89 Other specified disorders of bladder; E11.9 Type 2 diabetes mellitus without complications; I10 Essential (primary) hypertension; Z01.810 Encounter for preprocedural cardiovascular examination; Z01.812 Encounter for preprocedural laboratory examination; Z01.818 Encounter for other preprocedural examination; Z11.59 Encounter for screening for other viral diseases; Z79.84 Long term (current) use of oral hypoglycemic drugs
CPT/HCPCS: 36415 ×2; 50590; 71046; 74018; 80048; 82948; 84550; 85025; 87635; 93005; C1758; J0696; J1100; J2001; J2405; Q9967

== ENCOUNTER → 2020-05-12 | Day surgery (SDC) | payer MEDICARE, BC, OTHER ==
[2020-05-07 09:48] LABS: ANION GAP 13.1 mmol/L (8-16); BLOOD UREA NITROGEN 13 mg/dL (7-26); BUN/CREATININE RATIO 20 (6-25); CALCIUM 9.4 mg/dL (8.4-10.2); CARBON DIOXIDE 27 mmol/L (22-29); CHLORIDE 106 mmol/L (98-107); CREATININE, SERUM 0.66 mg/dL (0.57-1.11); EST GLOMERULAR FILTRATION RATE > 60 ML/MIN (60-); GLUCOSE 111 mg/dL (74-118); POTASSIUM 4.1 mmol/L (3.5-5.1); SODIUM 142 mmol/L (136-145)
--- NOTE | 2020-05-07 09:57 | Diagnostic Imaging Report ---
EXAM: ABDOMEN-1VIEW (KUB) DATE: 05/07/2020 9:35 AM INDICATION: Kidney stones COMPARISON: 02/24/2020 FINDINGS: Again identified are scattered bilateral renal calculi measuring up to 4 mm on the right and 3 mm on the left. Stone burden appears grossly unchanged from the prior examination from 02/24/2020. Bowel gas pattern is nonobstructive. Cholecystectomy clips noted within the right upper quadrant. No acute osseous abnormality is identified. IMPRESSION: Unchanged bilateral renal calculi as detailed above. Signed by: Dr. Yang Paez MD on 05/07/2020 9:53 AM
[~2020-05-12] MED LIST changes: -B&O 60MG R/S 60 MG SUPP PR ONE; -DEXAMETHASONE SOD PHOS INJ 4 MG/ML VIAL ONE; -EPHEDRINE SULFATE INJ 50 MG/ML VIAL ONE; -ETOMIDATE 2 MG/ML 10 ML INJ IV ONE; +FENTANYL CITRATE/PF 100MCG/2 ML INJ ONE; -GLYCOPYRROLATE INJ 0.2 MG/ML VIAL ONE; -IOPAMIDOL 300MG/ML 50ML INFUS..BTL IV ONE; +LIDOCAINE HCL 2% JELLY 5 ML TUBE ONE; +MIDAZOLAM HCL 2 MG/2 ML VIAL ONE; +PROPOFOL IV EMULSION 10 MG/ML 20 ML VIAL ONE
[2020-05-12 09:10] VITALS: BP 144/64
--- NOTE | 2020-05-13 01:45 | Operative Report ---
DATE OF PROCEDURE: 05/12/2020 SURGEON: Akil Bai MD PREOPERATIVE DIAGNOSIS: Right nephrolithiasis. POSTOPERATIVE DIAGNOSIS: Right nephrolithiasis. OPERATIONS PERFORMED: 1. Staged right-sided extracorporeal shockwave lithotripsy. 2. Supervision of fluoroscopy, no radiologist present. ANESTHESIA: General. COMPLICATIONS: None. CLINICAL SUMMARY: Norma Reid is a 69-year-old woman with recurrent bilateral nephrolithiasis. She underwent multiple procedures. Most recently, she underwent a left ESWL. She is brought for staged right-sided ESWL. She is aware of the risks of bleeding, infection, injury to adjacent structures, need for additional procedures, and elected to proceed. Some fragments were remaining in the left kidney from prior ESWL and there are stone fragments in the right side, that we plan to treat today. OPERATIVE PROCEDURE IN DETAIL: Informed consent was verified. Norma Reid was properly identified, taken to the operating room, placed on the lithotripsy table in supine position. Anesthesia was uneventfully begun. The patient's right nephrolithiasis was localized with biplanar fluoroscopy. A total of 3000 shocks were delivered with fragmentation noted. The patient was then uneventfully reversed from anesthesia and taken to recovery room in stable condition. There were no complications to the procedure. She tolerated the procedure well. PLANS: Plans will be to follow the patient up in the office and of course on a long-term basis; should the patient have any significant symptomatology or worsening of the right-sided flank pains that she has intermittently experienced additional imaging will be required. Akil Bai MD [place]/MODL /[id number] cc: Cordell Jimenez Jr, MD
== END | disposition home or self-care (01) ==
LOC: OR 05:05
PROVIDERS: ATTEND Urology
DX: N20.0 Calculus of kidney (principal); I10 Essential (primary) hypertension; E11.9 Type 2 diabetes mellitus without complications; G51.0 Bell's palsy; Z01.812 Encounter for preprocedural laboratory examination; Z01.818 Encounter for other preprocedural examination; Z11.59 Encounter for screening for other viral diseases
CPT/HCPCS: 36415; 50590; 74018; 80048; 82948; J0696; J2001; J2250; J2405; J3010; U0002

== ENCOUNTER → 2020-06-18 | Outpatient (CLI) | payer MEDICARE, BC ==
[~2020-06-18] MED LIST changes: -CEFTRIAXONE SOD 1 GM/NS 50 ML 50 ML IV ONE; -FENTANYL CITRATE/PF 100MCG/2 ML INJ ONE; -LIDOCAINE HCL 2% JELLY 5 ML TUBE ONE; -LIDOCAINE HCL 2% LOCAL INJ 5 ML SDV VIAL INJ ONE; -MIDAZOLAM HCL 2 MG/2 ML VIAL ONE; -ONDANSETRON HCL INJ 2MG/ML 2ML 2 MG/ML VIAL ONE; -PROPOFOL IV EMULSION 10 MG/ML 20 ML VIAL ONE; -SEVOFLURANE INHAL SOLN 250 ML PEN BTL ONE
--- NOTE | 2020-06-18 17:34 | Diagnostic Imaging Report ---
EXAM: Abdomen Radiograph 1 View(s) INDICATION: Cyst of kidney; CALCULUS OF KIDNEY COMPARISON: None FINDINGS: Nonobstructive bowel gas pattern. Cholecystectomy clips. Multiple punctate calcifications projecting over the bilateral kidneys are compatible with known renal stones. Multilevel degenerative changes of the spine. The sacroiliac joints are symmetric. IMPRESSION: 1. Nephrolithiasis, unchanged. 2. Nonobstructive bowel gas pattern. Signed by: Alvaro Weir MD on 06/18/2020 5:31 PM
== END ==
LOC: RAD 16:14
PROVIDERS: ATTEND Urology
DX: N20.0 Calculus of kidney (principal); N28.1 Cyst of kidney, acquired
CPT/HCPCS: 74018

== ENCOUNTER → 2020-06-21 | Outpatient (CLI) | payer MEDICARE, BC ==
--- NOTE | 2020-06-21 17:43 | Diagnostic Imaging Report ---
Retroperitoneal ultrasound Indication: Renal calculus, renal cyst Technique: Select images from retroperitoneal ultrasound provided for interpretation: Comparison: CT abdomen/pelvis 02/10/2019. Findings: The right kidney measures 11.9 cm in greatest length. The echotexture is normal. There is no evidence for mass. There is no collecting system dilatation or evidence of obstruction. Multiple subcentimeter calculi, the largest measuring 4 mm. No adjacent free fluid or fluid collections. The left kidney measures 11.8 cm in greatest length. The echotexture is normal. There is a unilocular cyst in the lower pole measuring 3.9 x 3.6 x 3.7 cm. Mild stable fullness of the collecting system without calyceal dilatation. Several intrarenal calculi, the largest measuring 5 mm.. No adjacent free fluid or fluid collections. Bladder is well distended and is normal. No free fluid in the pelvis. Survey images of the liver and spleen demonstrate no abnormalities. IMPRESSION: 1. Bilateral intrarenal calculi. Mild left pelviectasis. 2. Cyst in the left kidney as described above. Signed by: Dr. Amaya Novoa MD on 06/21/2020 5:39 PM
== END ==
LOC: US 16:04
PROVIDERS: ATTEND Urology
DX: N20.0 Calculus of kidney (principal); N28.1 Cyst of kidney, acquired
CPT/HCPCS: 76770

== ENCOUNTER → 2020-07-09 | Outpatient (CLI) | payer MEDICARE, BC | LOC: CT 15:58 | PROVIDERS: ATTEND Urology | DX: N20.0 Calculus of kidney (principal) | CPT/HCPCS: 74176 ==

== ENCOUNTER → 2020-11-30 | Day surgery (SDC) | payer MEDICARE, BC ==
[2020-11-26 14:09] LABS: BASOPHILS % 0.6 % (0.0-1.0); EOSINOPHILS # (AUTO) 0.3 (0.0-0.4); EOSINOPHILS % 3.7 % (0.0-6.0); HEMATOCRIT 39.2 % (34.2-44.1); HEMOGLOBIN 12.5 g/dL (12.0-16.0); LYMPHOCYTES # (AUTO) 2.4 (1.0-3.2); LYMPHOCYTES % 34.9 % (18.0-39.1); MEAN CORPUSCULAR HEMOGLOBIN 28.7 pg (28-32); MEAN CORPUSCULAR HGB CONC 31.9 g/dL (31-35); MEAN CORPUSCULAR VOLUME 90.1 fL (81-99); MONOCYTES # (AUTO) 0.7 (0.2-0.8); MONOCYTES % 9.8 % (4.4-11.3); NEUTROPHILS # (AUTO) 3.5 (2.1-6.9); NEUTROPHILS % 50.9 % (38.7-80.0); PLATELET COUNT 152 x10e3/uL (140-360); RED BLOOD COUNT 4.35 x10e6/uL (3.6-5.1); RED CELL DISTRIBUTION WIDTH 13.5 % (11.7-14.4)
[2020-11-26 14:43] LABS: ALANINE AMINOTRANSFERASE 19 IU/L (0-55); ALBUMIN 3.7 g/dL (3.5-5.0); ALBUMIN/GLOBULIN RATIO 1.1 (0.8-2.0); ALKALINE PHOSPHATASE 69 IU/L (40-150); ANION GAP 16.2 mmol/L (8-16); BLOOD UREA NITROGEN 18 mg/dL (7-26); BUN/CREATININE RATIO 25 (6-25); CARBON DIOXIDE 25 mmol/L (22-29); CHLORIDE 105 mmol/L (98-107); CREATININE, SERUM 0.71 mg/dL (0.57-1.11); EST GLOMERULAR FILTRATION RATE > 60 ML/MIN (60-); GLUCOSE 167 mg/dL (74-118); POTASSIUM 4.2 mmol/L (3.5-5.1); SODIUM 142 mmol/L (136-145)
[~2020-11-30] MED LIST changes: +ATROPINE SULFATE 1 MG/ML VIAL ONE; +B&O 60MG R/S 60 MG SUPP PR ONE; +CEFTRIAXONE SOD 1 GM VIAL ONE; +ELIQUIS5 MG PO; +EPHEDRINE SULFATE INJ 50 MG/ML VIAL ONE; +FENTANYL CITRATE/PF 100MCG/2 ML INJ ONE; +FLECAINIDE ACE100 MG PO; +IOPAMIDOL 300MG/ML 50ML INFUS..BTL IV ONE; +METOPROLOL SUCC25 MG PO; +MIDAZOLAM HCL 2 MG/2 ML VIAL ONE; +ONDANSETRON HCL INJ 2MG/ML 2ML 2 MG/ML VIAL ONE; +PROPOFOL IV EMULSION 10 MG/ML 20 ML VIAL ONE; +SEVOFLURANE INHAL SOLN 250 ML PEN BTL ONE; +SODIUM CHLORIDE 0.9% 50ML 50 ML ONE
[2020-11-30 09:40] VITALS: BP 146/60
== END | disposition home or self-care (01) ==
LOC: OR 05:38
PROVIDERS: ATTEND Urology
DX: N20.0 Calculus of kidney (principal); R31.29 Other microscopic hematuria; N81.4 Uterovaginal prolapse, unspecified; N36.41 Hypermobility of urethra; N95.2 Postmenopausal atrophic vaginitis; Z01.810 Encounter for preprocedural cardiovascular examination; Z01.812 Encounter for preprocedural laboratory examination; Z20.822 Contact with and (suspected) exposure to COVID-19
CPT/HCPCS: 36415 ×2; 50590; 74018; 74420; 80053; 82948; 84550; 85025; 93005; C1758; J0461; J0696; J2250; J2405; J2704; J3010; Q9967; U0002

== ENCOUNTER → 2021-01-17 | Outpatient (CLI) | payer MEDICARE, BC ==
[~2021-01-17] MED LIST changes: -ATROPINE SULFATE 1 MG/ML VIAL ONE; -B&O 60MG R/S 60 MG SUPP PR ONE; -CEFTRIAXONE SOD 1 GM VIAL ONE; -EPHEDRINE SULFATE INJ 50 MG/ML VIAL ONE; -FENTANYL CITRATE/PF 100MCG/2 ML INJ ONE; -IOPAMIDOL 300MG/ML 50ML INFUS..BTL IV ONE; -MIDAZOLAM HCL 2 MG/2 ML VIAL ONE; -ONDANSETRON HCL INJ 2MG/ML 2ML 2 MG/ML VIAL ONE; -PROPOFOL IV EMULSION 10 MG/ML 20 ML VIAL ONE; -SEVOFLURANE INHAL SOLN 250 ML PEN BTL ONE; -SODIUM CHLORIDE 0.9% 50ML 50 ML ONE
== END ==
LOC: CT 13:50
PROVIDERS: ATTEND Urology
DX: N20.0 Calculus of kidney (principal)
CPT/HCPCS: 74176

== ENCOUNTER → 2021-02-11 | Day surgery (SDC) | payer MEDICARE, BC ==
[2021-02-08 12:32] LABS: BASOPHILS % 0.5 % (0.0-1.0); EOSINOPHILS # (AUTO) 0.2 (0.0-0.4); EOSINOPHILS % 3.4 % (0.0-6.0); HEMATOCRIT 42.5 % (34.2-44.1); HEMOGLOBIN 13.4 g/dL (12.0-16.0); LYMPHOCYTES % 36.3 % (18.0-39.1); MEAN CORPUSCULAR HEMOGLOBIN 28.6 pg (28-32); MEAN CORPUSCULAR HGB CONC 31.5 g/dL (31-35); MEAN CORPUSCULAR VOLUME 90.6 fL (81-99); MONOCYTES # (AUTO) 0.5 (0.2-0.8); MONOCYTES % 9.5 % (4.4-11.3); NEUTROPHILS # (AUTO) 2.8 (2.1-6.9); NEUTROPHILS % 50.1 % (38.7-80.0); PLATELET COUNT 145 x10e3/uL (140-360); RED BLOOD COUNT 4.69 x10e6/uL (3.6-5.1); RED CELL DISTRIBUTION WIDTH 13.3 % (11.7-14.4)
[2021-02-08 13:07] LABS: ANION GAP 13.4 mmol/L (8-16); BLOOD UREA NITROGEN 17 mg/dL (7-26); BUN/CREATININE RATIO 25 (6-25); CALCIUM 9.5 mg/dL (8.4-10.2); CARBON DIOXIDE 25 mmol/L (22-29); CHLORIDE 108 mmol/L (98-107); CREATININE, SERUM 0.68 mg/dL (0.57-1.11); EST GLOMERULAR FILTRATION RATE > 60 ML/MIN (60-); GLUCOSE 101 mg/dL (74-118); POTASSIUM 4.4 mmol/L (3.5-5.1); SODIUM 142 mmol/L (136-145)
[~2021-02-11] MED LIST changes: +CEFTRIAXONE SOD 1 GM VIAL ONE; +DEXAMETHASONE SOD PHOS INJ 4 MG/ML VIAL ONE; +FENTANYL CITRATE/PF 100MCG/2 ML INJ ONE; +KETOROLAC TROMETHAMINE 30 MG/ML VIAL ONE; +MIDAZOLAM HCL 2 MG/2 ML VIAL ONE; +ONDANSETRON HCL INJ 2MG/ML 2ML 2 MG/ML VIAL ONE; +POVIDONE IODINE 0.05% 0.05 % ML PO ONE; +PROPOFOL IV EMULSION 10 MG/ML 20 ML VIAL ONE; +SEVOFLURANE INHAL SOLN 250 ML PEN BTL ONE; +SODIUM CHLORIDE 0.9% 50ML 50 ML ONE
[2021-02-11 08:45] VITALS: BP 148/70
== END | disposition home or self-care (01) ==
LOC: OR 05:50
PROVIDERS: ATTEND Urology
DX: N20.0 Calculus of kidney (principal); G47.33 Obstructive sleep apnea (adult) (pediatric); E11.9 Type 2 diabetes mellitus without complications; K21.9 Gastro-esophageal reflux disease without esophagitis; I48.91 Unspecified atrial fibrillation; E78.5 Hyperlipidemia, unspecified; I10 Essential (primary) hypertension; Z01.812 Encounter for preprocedural laboratory examination; Z01.818 Encounter for other preprocedural examination; Z20.822 Contact with and (suspected) exposure to COVID-19; Z79.02 Long term (current) use of antithrombotics/antiplatelets; Z79.84 Long term (current) use of oral hypoglycemic drugs
CPT/HCPCS: 36415 ×2; 50590; 74018; 80048; 82948; 85025; J0696; J1100; J1885; J2250; J2405; J2704; J3010; U0002

== ENCOUNTER → 2021-04-18 | Outpatient (CLI) | payer MEDICARE, BC ==
[~2021-04-18] MED LIST changes: -CEFTRIAXONE SOD 1 GM VIAL ONE; -DEXAMETHASONE SOD PHOS INJ 4 MG/ML VIAL ONE; -FENTANYL CITRATE/PF 100MCG/2 ML INJ ONE; +IOPAMIDOL 370 MG/ML 200 ML INFUS..BTL INJ ONE; -KETOROLAC TROMETHAMINE 30 MG/ML VIAL ONE; -MIDAZOLAM HCL 2 MG/2 ML VIAL ONE; -ONDANSETRON HCL INJ 2MG/ML 2ML 2 MG/ML VIAL ONE; -POVIDONE IODINE 0.05% 0.05 % ML PO ONE; -PROPOFOL IV EMULSION 10 MG/ML 20 ML VIAL ONE; -SEVOFLURANE INHAL SOLN 250 ML PEN BTL ONE
== END ==
LOC: CT 16:13
PROVIDERS: ATTEND Internal Medicine Gastroenterology
DX: R10.13 Epigastric pain (principal); K76.0 Fatty (change of) liver, not elsewhere classified; K57.30 Diverticulosis of large intestine without perforation or abscess without bleeding; K21.9 Gastro-esophageal reflux disease without esophagitis; K44.9 Diaphragmatic hernia without obstruction or gangrene; Z80.0 Family history of malignant neoplasm of digestive organs
CPT/HCPCS: 74177; Q9967

== ENCOUNTER → 2021-06-13 | Outpatient (CLI) | payer MEDICARE, BC ==
[~2021-06-13] MED LIST changes: -IOPAMIDOL 370 MG/ML 200 ML INFUS..BTL INJ ONE; -SODIUM CHLORIDE 0.9% 50ML 50 ML ONE
== END ==
LOC: CT 08:43
PROVIDERS: ATTEND Urology
DX: N20.0 Calculus of kidney (principal)
CPT/HCPCS: 74176

== ENCOUNTER → 2022-05-09 | Outpatient (CLI) | payer MEDICARE, BC ==
[~2022-05-09] MED LIST changes: +IOPAMIDOL 300MG/ML 100 ML INFUS..BTL IV ONE; +SODIUM CHLORIDE 0.9% 250ML 250 ML ONE
[2022-05-09 14:45] LABS: CREATININE, SERUM 0.75 mg/dL (0.57-1.11)
== END ==
LOC: CT 13:42
PROVIDERS: ATTEND Urology
DX: N20.0 Calculus of kidney (principal); N39.0 Urinary tract infection, site not specified; R31.21 Asymptomatic microscopic hematuria
CPT/HCPCS: 36415; 74178; 82565; 84520; J7050; Q9967

== ENCOUNTER → 2022-07-14 | Day surgery (SDC) | payer MEDICARE, BC ==
[2022-07-12 09:49] LABS: BASOPHILS % 0.4 % (0.0-1.0); EOSINOPHILS # (AUTO) 0.3 (0.0-0.4); EOSINOPHILS % 3.7 % (0.0-6.0); HEMATOCRIT 40.5 % (34.2-44.1); HEMOGLOBIN 12.4 g/dL (12.0-16.0); LYMPHOCYTES # (AUTO) 2.5 (1.0-3.2); LYMPHOCYTES % 37.3 % (18.0-39.1); MEAN CORPUSCULAR HEMOGLOBIN 29.2 pg (28-32); MEAN CORPUSCULAR HGB CONC 30.6 g/dL (31-35); MEAN CORPUSCULAR VOLUME 95.3 fL (81-99); MONOCYTES # (AUTO) 0.4 (0.2-0.8); MONOCYTES % 6.5 % (4.4-11.3); NEUTROPHILS # (AUTO) 3.5 (2.1-6.9); NEUTROPHILS % 51.8 % (38.7-80.0); PLATELET COUNT 191 x10e3/uL (140-360); RED BLOOD COUNT 4.25 x10e6/uL (3.6-5.1); RED CELL DISTRIBUTION WIDTH 13.2 % (11.7-14.4)
[2022-07-12 10:08] LABS: ALBUMIN 3.7 g/dL (3.5-5.0); ALBUMIN/GLOBULIN RATIO 1.1 (0.8-2.0); ANION GAP 12.1 mmol/L (8-16); CALCIUM 9.2 mg/dL (8.4-10.2); CREATININE, SERUM 0.74 mg/dL (0.57-1.11); POTASSIUM 4.1 mmol/L (3.5-5.1)
[~2022-07-14] MED LIST changes: +CEFTRIAXONE 1 GM VIAL ONE; +DEXAMETHASONE SOD PHOS INJ 4 MG/ML SDV IV ONE; +EPHEDRINE SULFATE INJ 50 MG/ML VIAL IV ONE; +GLYCOPYRROLATE INJ 0.2 MG/ML VIAL IV ONE; -IOPAMIDOL 300MG/ML 100 ML INFUS..BTL IV ONE; +LIDOCAINE HCL 2% LOCAL INJ 5 ML SDV VIAL INJ ONE; +METOCLOPRAMIDE HCL 10 MG/2ML VIAL ONE; +ONDANSETRON HCL INJ 2MG/ML 2ML 2 MG/ML VIAL IV ONE; +ONDANSETRON HCL INJ 2MG/ML 2ML 2 MG/ML VIAL ONE; +POVIDONE IODINE 0.05% 0.05 % ML PO ONE; +PROPOFOL IV EMULSION 10 MG/ML 20 ML VIAL IV ONE; +SEVOFLURANE INHAL SOLN 250 ML PEN BTL INH ONE; -SODIUM CHLORIDE 0.9% 250ML 250 ML ONE; +VITAMIN C1000 MG PO; +VITAMIN D350 MCG PO
[2022-07-14 14:37] VITALS: BP 132/78
== END | disposition home or self-care (01) ==
LOC: OR 10:36
PROVIDERS: ATTEND Urology
DX: N20.0 Calculus of kidney (principal); R73.03 Prediabetes; I25.10 Atherosclerotic heart disease of native coronary artery without angina pectoris; I48.91 Unspecified atrial fibrillation; I44.0 Atrioventricular block, first degree; I10 Essential (primary) hypertension; E78.5 Hyperlipidemia, unspecified; R00.1 Bradycardia, unspecified; R06.83 Snoring; Z01.810 Encounter for preprocedural cardiovascular examination; Z01.812 Encounter for preprocedural laboratory examination; Z01.818 Encounter for other preprocedural examination; Z79.02 Long term (current) use of antithrombotics/antiplatelets; Z79.84 Long term (current) use of oral hypoglycemic drugs; Z79.899 Other long term (current) drug therapy; Z98.61 Coronary angioplasty status
CPT/HCPCS: 36415 ×2; 50590; 71046; 74018; 80053; 82948; 83970; 84550; 85025; 93005; J0696; J1100; J2001; J2405; J2704; J2765

== ENCOUNTER → 2022-11-24 | Outpatient (CLI) | payer MEDICARE ==
[~2022-11-24] MED LIST changes: -CEFTRIAXONE 1 GM VIAL ONE; -DEXAMETHASONE SOD PHOS INJ 4 MG/ML SDV IV ONE; -EPHEDRINE SULFATE INJ 50 MG/ML VIAL IV ONE; -GLYCOPYRROLATE INJ 0.2 MG/ML VIAL IV ONE; -LIDOCAINE HCL 2% LOCAL INJ 5 ML SDV VIAL INJ ONE; -METOCLOPRAMIDE HCL 10 MG/2ML VIAL ONE; -ONDANSETRON HCL INJ 2MG/ML 2ML 2 MG/ML VIAL IV ONE; -ONDANSETRON HCL INJ 2MG/ML 2ML 2 MG/ML VIAL ONE; -POVIDONE IODINE 0.05% 0.05 % ML PO ONE; -PROPOFOL IV EMULSION 10 MG/ML 20 ML VIAL IV ONE; -SEVOFLURANE INHAL SOLN 250 ML PEN BTL INH ONE
== END ==
LOC: US 13:18
PROVIDERS: ATTEND Urology
DX: N20.0 Calculus of kidney (principal); N39.0 Urinary tract infection, site not specified
CPT/HCPCS: 74018; 76770

== ENCOUNTER → 2023-01-09 | Outpatient (CLI) | payer MEDICARE | LOC: CT 09:33 | PROVIDERS: ATTEND Urology | DX: N20.0 Calculus of kidney (principal) | CPT/HCPCS: 74176 ==

== ENCOUNTER 2024-05-03 06:17 | Emergency (ER) | payer MEDICARE ==
[~2024-05-03] VITALS: Ht 154.9 cm; Wt 74.8 kg
[~2024-05-03 06:17] MED LIST changes: +CIPRO500 MG PO
[2024-05-03 07:05] VITALS: PULSE 70; RESP 19; TEMP 99.7; O2SAT 97
== END 2024-05-03 07:23 | disposition home or self-care (01) ==
LOC: ER 06:24
DX: R05.9 Cough, unspecified (principal); U07.1 COVID-19; I10 Essential (primary) hypertension; E11.9 Type 2 diabetes mellitus without complications; E78.5 Hyperlipidemia, unspecified; Z87.442 Personal history of urinary calculi
CPT/HCPCS: 87400; 99283; U0002

== ENCOUNTER 2025-03-12 12:54 | Emergency (ER) | payer MEDICARE ==
[~2025-03-12] VITALS: Ht 152.4 cm; Wt 76.2 kg
[2025-03-12 13:49] VITALS: PULSE 64; RESP 18; TEMP 97.8; O2SAT 100
[2025-03-12] MEDS ORDERED: HYDROCODONE-AC473 M1 PO (13:58)
[2025-03-12] MEDS: KETOROLAC TROMETHAMINE 30 MG/ML VIAL IV STA (17:35)
[2025-03-12 18:16] LABS: BILIRUBIN,URINE NEGATIVE (NEGATIVE); CLARITY,URINE SL CLOUDY (CLEAR); COLOR,URINE YELLOW (YELLOW); GLUCOSE, URINE NEGATIVE (NEGATIVE); KETONES,URINE NEGATIVE (NEGATIVE); LEUKOCYTE ESTERASE ,URINE TRACE (NEGATIVE); NITRITE,URINE NEGATIVE (NEGATIVE); PH,URINE 6 (5 - 7); PROTEIN,URINE DIPSTICK NEGATIVE (NEGATIVE); URINE UROBILINOGEN 0.2 mg/dL (0.2 - 1)
[2025-03-12 18:30] LABS: BACTERIA,URINE MANY /HPF; EPITHELIAL CELLS,URINE MODERATE /LPF; WBC,URINE (MAN) 0-5 /HPF (0-5)
[2025-03-12] MEDS ORDERED: NAPROSYN500 MG PO (18:44)
[2025-03-12] MEDS ORDERED: METHOCARBAMOL500 MG PO (18:44)
== END 2025-03-12 18:54 | disposition home or self-care (01) ==
LOC: ER 18:20
DX: M54.50 Low back pain, unspecified (principal); I10 Essential (primary) hypertension; E11.9 Type 2 diabetes mellitus without complications; E78.5 Hyperlipidemia, unspecified; I48.91 Unspecified atrial fibrillation; Z87.442 Personal history of urinary calculi
CPT/HCPCS: 81001; 99282; J1885